=== PATIENT | male | born 1990 | race African-American/Black ===

== ENCOUNTER 2020-02-15 20:43 | Emergency (ER) | payer OTHER, SELFPAY ==
[~2020-02-15] VITALS: Ht 165.1 cm; Wt 59.1 kg
[2020-02-15 21:34] LABS: HEMATOCRIT 46.5 % (42.0-52.0); HEMOGLOBIN 15.1 g/dl (13.5-17.5); MEAN CORPUSCULAR HEMOGLOBIN 28.1 pg (27.0-33.0); MEAN CORPUSCULAR HGB CONC 32.5 g/dl (32.0-36.5); MEAN CORPUSCULAR VOLUME 86.4 fl (80.0-96.0); PLATELET COUNT, AUTOMATED 183 10^3/uL (150-450); RED BLOOD COUNT 5.38 10^6/uL (4.30-6.10); WHITE BLOOD COUNT 6.3 10^3/uL (4.0-10.0)
[2020-02-15 21:39] LABS: ACETAMINOPHEN LEVEL < 2.0 UG/ML (10.0-30.0); ALBUMIN 4.1 GM/DL (3.2-5.2); ALT/SGPT 22 U/L (12-78); BILIRUBIN,DIRECT 0.2 MG/DL (0.0-0.2); BILIRUBIN,TOTAL 0.6 MG/DL (0.2-1.0); BLOOD UREA NITROGEN 10 MG/DL (7-18); CALCIUM LEVEL 9.1 MG/DL (8.5-10.1); CARBON DIOXIDE LEVEL 27 MEQ/L (21-32); CHLORIDE LEVEL 106 MEQ/L (98-107); CREATININE FOR GFR 1.19 MG/DL (0.70-1.30); ETHYL ALCOHOL (ETHANOL) 0.085 % (0.000-0.010); GLOMERULAR FILTRATION RATE > 60.0 (>60); GLUCOSE, FASTING 82 MG/DL (70-100); POTASSIUM SERUM 3.6 MEQ/L (3.5-5.1); SALICYLATE LEVEL 2.1 MG/DL (5.0-30.0); SODIUM LEVEL 140 MEQ/L (136-145); TOTAL PROTEIN 7.2 GM/DL (6.4-8.2)
[2020-02-15 22:17] LABS: AMPHETAMINES LEVEL URINE NEGATIVE (NEGATIVE); BARBITURATES URINE NEGATIVE (NEGATIVE); BENZODIAZEPINES URINE NEGATIVE (NEGATIVE); CANNABINOIDS URINE POSITIVE (NEGATIVE); COCAINE METABOLITE URINE NEGATIVE (NEGATIVE); METHADONE URINE NEGATIVE (NEGATIVE); OPIATES URINE NEGATIVE (NEGATIVE); PHENCYCLIDINE URINE NEGATIVE (NEGATIVE)
[2020-02-15 23:03] VITALS: BP 163/114
== END 2020-02-15 22:56 | disposition home or self-care (01) ==
LOC: M ED 20:43
DX: F43.0 Acute stress reaction (principal); F17.200 Nicotine dependence, unspecified, uncomplicated; F12.10 Cannabis abuse, uncomplicated
CPT/HCPCS: 80048; 80076; 80307; 84443; 85027; 99284; G0480

== ENCOUNTER 2020-04-04 13:30 | Emergency (ER) | payer OTHER ==
[~2020-04-04] VITALS: Ht 162.6 cm; Wt 61.9 kg
[2020-04-04] MEDS ORDERED: AZITHROMYCIN 250MG TABLET PO ONE (14:30)
[2020-04-04] MEDS ORDERED: cefTRIAXone SOD 250MG VIAL (J0696 PER 250MG) IM ONE (14:30)
[2020-04-04] MEDS ORDERED: LIDOCAINE 1% SDV 5ML VIAL DILUENT ONE (14:30)
[2020-04-04 14:56] VITALS: BP 180/100
[2020-04-04 15:51] LABS: CHLAMYDIA DNA AMPLIFICATION NEGATIVE (NEGATIVE); GC DNA AMPLIFICATION NEGATIVE (NEGATIVE)
== END 2020-04-04 14:59 | disposition home or self-care (01) ==
LOC: M ED 13:30
DX: N34.1 Nonspecific urethritis (principal); Z20.2 Contact with and (suspected) exposure to infections with a predominantly sexual mode of transmission
CPT/HCPCS: 81001; 87086; 87661; 96372; 99283; J0696

== ENCOUNTER 2020-04-20 13:50 | Emergency (ER) | payer OTHER ==
[~2020-04-20] VITALS: Ht 162.6 cm; Wt 61.4 kg
[2020-04-20] MEDS ORDERED: MUCI600T31 PO (13:55)
[2020-04-20 15:23] VITALS: BP 155/87
[2020-04-20] MEDS ORDERED: KETOROLAC TROMETHAMINE 10 MG TAB PO ONE (15:45)
[2020-04-20] MEDS ORDERED: ACETAMINOPHEN 500 MG TAB PO ONE (15:45)
--- NOTE | 2020-04-20 16:04 | REP ---
CT BRAIN: 04/20/2020 INDICATION: Headache. TECHNIQUE: Unenhanced axial CT images of the brain were obtained from the skull base to the vertex with coronal reconstructions provided. COMPARISON: None. FINDINGS: There is no acute intracranial hemorrhage, acute cortical infarction, mass effect, hydrocephalus, acute calvarial fracture or significant fluid within the visualized paranasal sinuses/mastoid air cells. IMPRESSION: No acute intracranial process. Electronically Signed by Miah Stevenson DO 04/22/2020 08:40 A
[2020-04-20] MEDS ORDERED: AUGMENTIN 875 MG TAB PO ONE (16:15)
[2020-04-20] MEDS ORDERED: AUGM875T28 PO (16:27)
== END 2020-04-20 16:33 | disposition home or self-care (01) ==
LOC: M ED 13:50
DX: J01.90 Acute sinusitis, unspecified (principal); K08.89 Other specified disorders of teeth and supporting structures; R51 Headache; F17.200 Nicotine dependence, unspecified, uncomplicated

== ENCOUNTER 2020-05-24 21:24 | Emergency (ER) | payer OTHER ==
[~2020-05-24] VITALS: Ht 162.6 cm; Wt 58.9 kg
[2020-05-24 21:24] VITALS: BP 172/109
[~2020-05-24 21:24] MED LIST: AUGM875T28 PO; MUCI600T31 PO
== END 2020-05-24 23:10 | disposition left against medical advice (07) ==
LOC: M ED 21:24
DX: Z53.21 Procedure and treatment not carried out due to patient leaving prior to being seen by health care provider (principal)